=== PATIENT | female | born 1990 | race Caucasian/White ===

== ENCOUNTER 2019-10-09 07:25 | Day surgery (SDC) | payer MEDICAID ==
[~2019-10-09] VITALS: Ht 170.2 cm; Wt 123.4 kg
[2019-10-09 07:55] LABS: HCG,QUAL RESULT NEGATIVE (NEGATIVE)
[2019-10-09] MEDS ORDERED: fentaNYL CITRATE/PF 100 MCG/2 ML AMP IVP PRN ×2 (08:30)
[2019-10-09] MEDS ORDERED: KETOROLAC TROMETHAMINE 30 MG VIAL IVP PRN (08:30)
[2019-10-09] MEDS ORDERED: ONDANSETRON HCL 4 MG/2 ML VIAL IVP PRN (08:30)
[2019-10-09] MEDS ORDERED: MIDAZOLAM HCL 5 MG/ML VIAL (VERSED) IV ONE (10:55)
[2019-10-09] MEDS ORDERED: PROPOFOL 200MG/ 20ML VIAL (DIPRIVAN) IV ONE (10:55)
[2019-10-09] MEDS ORDERED: SEVOFLURANE 15 MIN GAS INH ONE (10:55)
[2019-10-09] MEDS ORDERED: fentaNYL CITRATE/PF 100 MCG/2 ML AMP ONE (10:55)
[2019-10-09] MEDS ORDERED: NEOSTIGMINE METHYLSULFATE 1 MG/ML, 10 ML VIAL ONE (10:55)
[2019-10-09] MEDS ORDERED: ONDANSETRON HCL 4 MG/2 ML VIAL ONE ×2 (10:55→11:26)
[2019-10-09] MEDS ORDERED: LR 1,000 ML IV.SOLN IV ONE (10:55)
[2019-10-09] MEDS ORDERED: ROCURONIUM BROMIDE 10 MG/ML (ZEMURON) ONE (10:55)
[2019-10-09] MEDS ORDERED: NS IRRIG SOLN 1000 ML IR ONE (10:55)
[2019-10-09] MEDS ORDERED: GLYCOPYRROLATE 0.2 MG/ML VIAL ONE (10:55)
[2019-10-09] MEDS ORDERED: MIDAZOLAM HCL 2 MG/2 ML VIAL (VERSED) ONE (11:08)
[2019-10-09] MEDS ORDERED: KETOROLAC TROMETHAMINE 30 MG VIAL ONE (11:36)
[2019-10-09 12:25] VITALS: BP_SYST 118
== END 2019-10-09 13:25 | disposition home or self-care (01) ==
LOC: SDS 07:25 → SMU 07:25 → SDS 13:25
PROVIDERS: ATTEND Obstetrics & Gynecology
DX: Z30.2 Encounter for sterilization (principal); Z64.1 Problems related to multiparity; Z90.89 Acquired absence of other organs
CPT/HCPCS: 58670; 84703; C1727; J1885; J2250; J2405; J2704; J2710; J3010; J3465; J3490; J7120